=== PATIENT | female | born 1960 | race African-American/Black ===

== ENCOUNTER 2018-05-05 21:26 | Emergency (ER) | payer OTHER ==
[~2018-05-05] VITALS: Ht 162.6 cm; Wt 97.5 kg
[~2018-05-05 21:26] MED LIST: KEFLEX500 MG PO
[2018-05-05] MEDS ORDERED: OMEGA-31000 M1 PO (21:37)
[2018-05-05] MEDS ORDERED: VITAMIN D1000 UNI1 PO (21:37)
[2018-05-05 22:59] VITALS: BP 151/81
--- NOTE | 2018-05-06 08:06 | EKG ---
[address] [address] ELECTROCARDIOGRAM REPORT Name: SVETAAIDEN [id number] Admission: 05/05/18 Attend Phys: Discharge: 05/05/18 Date of : 60 Report #: [id number] THIS REPORT FOR: //name// [facility] ED Test Date: 2018-05-05 Test Time: 22:26:52 Pat Name: AIDEN BANGURA Department: Room: Gender: F Heat Sealing Machine Operator: FATOU : 1960 Requested By: Rocio Conklin Order Number: [id number] MD: Jorje Dao Measurements Intervals Anna Rate: 57 P: 46 DC: 180 QRS: -1 QRSD: 96 T: 7 QT: 447 QTc: 436 Interpretive Statements Sinus rhythm Borderline T wave abnormalities Baseline wander in lead(s) II,III,aVF Compared to ECG 07/04/2015 11:54:24 T-wave abnormality now present Sinus bradycardia no longer present Electronically Signed On 05-06-2018 8:06:09 [employer] by Jorje Dao [email or web address] <ELECTRONICALLY SIGNED> By: Jorje Dao MD 05/06/18805 25 25 Jorje Dao MD /EPI
== END 2018-05-05 23:00 | disposition home or self-care (01) ==
LOC: ER 21:26
DX: R58 Hemorrhage, not elsewhere classified (principal); M54.12 Radiculopathy, cervical region

== ENCOUNTER → 2021-04-23 | Emergency (ER) | payer OTHER ==
[~2021-04-23] VITALS: Ht 162.6 cm; Wt 99.8 kg
[~2021-04-23] MED LIST changes: +AMLODIPINE BESY10 MG PO; +OMEGA-31000 M1 PO; +PREDNISONE 10 M10 MG PO; +VITAMIN D1000 UNI1 PO
[2021-04-23 17:30] VITALS: BP 161/98
[2021-04-23 20:46] LABS: URINE BILIRUBIN NEGATIVE (Negative); URINE BLOOD 2+ (Negative); URINE CLARITY CLEAR; URINE COLOR YELLOW; URINE GLUCOSE-RANDOM* NEGATIVE (Negative); URINE KETONES NEGATIVE (Negative); URINE LEUKOCYTES-REFLEX NEGATIVE (Negative); URINE NITRITE-REFLEX NEGATIVE (Negative); URINE PROTEIN (DIPSTICK) 1+ (Negative); URINE SPECIFIC GRAVITY <= 1.005 (1.005-1.035); URINE UROBILINOGEN 0.2 E.U./dl (0.2-1.0)
[2021-04-23 20:56] LABS: BACTERIA-REFLEX 1-9 Few /HPF (None Seen); CASTS None Seen /LPF (None Seen); CRYSTALS None Seen /LPF (None Seen); SQUAMOUS 0-3 Few /LPF (0-3); URINE RBC 1-2 Rare /HPF (NONE SEEN); URINE WBC-REFLEX 0-5 Rare /HPF (0-5)
== END ==
LOC: ER 17:06
PROVIDERS: Emergency Medicine
DX: R11.2 Nausea with vomiting, unspecified (principal); R19.7 Diarrhea, unspecified; R50.9 Fever, unspecified; Z53.21 Procedure and treatment not carried out due to patient leaving prior to being seen by health care provider

== ENCOUNTER 2021-04-28 07:46 | Inpatient (IN) | payer OTHER ==
[~2021-04-28] VITALS: Ht 172.7 cm; Wt 93.9 kg
--- NOTE | ~2021-04-28 | EMS ---
[place] [id number] EMS Patient Care Report Name: AIDEN BANGURA Room #: 170-4 ADM IN M.R.#: [id number] Admission: 04/28/21 Attend Phys: Kevin Clifford MD Discharge: Date of : 60 Report #: [id number] THIS REPORT FOR: //name// Report Transmitted: 04/29/2021 10:58 EMS Care Summary [place], [place]/[facility] Incident [id number] @ 04/28/2021 07:[address] [facility] [address] [place] [address] Patient AIDEN BANGURA Female, 61 Years [address] [facility] [address] [place] [address] Patient History None Reported, Patient Allergies No known allergies, Patient Medications None Reported, Chief Complaint WEAKNESS Disposition Transported No Lights/[place] Dispatch Reason Heart Problems/AICD Transported To [facility] Narrative MEDIC 41 DISPATCHED FOR HEART PROBLEMS. UPON ARRIVAL ON SCENE WE WERE MET BY THE PATIENTS WHO LED US TO THE PATIENT. THE PATIENT WAS FOUND SEATED ON A COUCH APPEARING IN NO DISTRESS. THE PATIENT DID GIVE OFF THE APPEARANCE THAT SHE WAS TIRED. THE PATIENT CONSENTED TO ALL VITALS AND [place] [address] EMS Patient Care Report Name: AIDEN BANGURA Room #: 170-4 ADM IN Elizabeth#: [id number] Admission: 04/28/21 Attend Phys: Kevin Clifford MD Discharge: Date of : 60 Report #: [id number] STATED THAT SHE FELT LIKE HER HEART OF [place]. THE ALSO REPORTED THAT SHE HAD BEEN NOT FEELING WELL FOR THE PAST WEEK AND HAS HAD DIARRHEA. THE PATIENT STATED SHE WAS NOT VACCINATED FOR COVID AND HAD NOT BEEN ABLE TO GET A COVID TEST UP TO THIS POINT. WITH ASISSTANCE THE PATIENT WAS ABLE TO WALK OUT TO THE STRETCHER AND SIT ON THE STRETCHER WITHOUT INCIDENT. THE PATIENT HAD DENIED ANY TROUBLE BREATHING BUT ONCE IN THE AMBULANCE THE PATIENT WAS PLACED ON 3L O2 DUE TO A LOW O2 SAT. THE PATIENT STATED THERE WAS NO CHANGE IN HOW SHE FELT AFTER O2 WAS PLACED. NO CHANGES IN PATIENT CONDITION WERE SEEN DURING TRANSPORT. UPON ARRIVAL TO THE HOSPITAL THE PATIENT WAS MOVED TO THE ED WITHOUT INCIDENT AND CARE WAS TRANSFERED TO THE ED NURSE. Initial Vitals @07:22P: 101,BP: 166/88,CO: 3,SpO2: 91, @07:30P: 112,R: 18,BP: 172/124,Pain: 0/10,GCS: 15,SpO2: 84,Revised Trauma: 12, @07:35P: 92,R: 16,BP: 153/70,Pain: 0/10,GCS: 15,Temp: 100.6F,CO: 5,SpO2: 92,Revised Trauma: 12, @07:21P: 105,R: 18,BP: 170/103,Pain: 0/10,GCS: 15,SpO2: 90,Revised Trauma: 12, Assessments @07:21MENTAL:Time Oriented,Event Oriented,Place Oriented,Person Oriented,SKIN:HEENT:Eyes: Left Pupil: 4-mm,Eyes: Right Pupil: 4-mm,Head/Face: No Abnormalities,LUNG SOUNDS:General: Diarrhea,ABDOMEN:General: Diarrhea,PELVIS//GI:EXTREMITIES:Capillary Refill: Left Lower: < 2 Sec,Capillary Refill: Left Upper: < 2 Sec,Capillary Refill: Right Lower: < 2 Sec,Capillary Refill: Right Upper: < 2 Sec,Left Arm: No Abnormalities,Right Arm: No Abnormalities,Left Leg: No Abnormalities,Right Leg: No Abnormalities,PULSE:Radial: 2+ Normal,NEURO:No Abnormalities,@07:40MENTAL:Place Oriented,Time Oriented,Person Oriented,Event Oriented,SKIN:HEENT:Head/Face: No Abnormalities,Neck/Airway: No Abnormalities,LUNG SOUNDS:General: Diarrhea,ABDOMEN:General: Diarrhea,PELVIS//GI:EXTREMITIES:Capillary Refill: Left Upper: < 2 Sec,Capillary Refill: Right Upper: < 2 Sec,Left Arm: No Abnormalities,Right Arm: No Abnormalities,Left Leg: No Abnormalities,Right Leg: No Abnormalities,PULSE:Radial: 2+ Normal,NEURO: Impression Generalized Weakness Procedures @07:22 ALS Assessment Response: UnchangedSucceeded @07:22 3-Lead ECG Response: UnchangedSucceeded @07:27 Stretcher Response: Unchanged @07:31 Oxygen FlowRate: 2 Device: Nasal Cannula (NC) Response: ImprovedSucceeded Timeline [address] [address] EMS Patient Care Report Name: AIDEN BANGURA Room #: 170-4 ADM IN M.R.#: [id number] Admission: 04/28/21 Attend Phys: Kevin Clifford MD Discharge: Date of : 60 Report #: [id number] 07:11,Call Received 07:11,Dispatch Notified 07:12,Dispatched 07:13,En Route 07:19,On Scene 07:21,At Patient 07:21,BP: 170/103 M,PULSE: 105,RR: 18 R,SPO2: 90 Ox,ETCO2: ,BG: ,PAIN: 0,GCS: 15, 07:22,ALS Assessment,Response: UnchangedSucceeded, 07:22,3-Lead ECG,Response: UnchangedSucceeded, 07:22,BP: 166/88 M,PULSE: 101,RR: R,SPO2: 91 Ox,ETCO2: ,BG: ,PAIN: ,GCS: , 07:27,Stretcher,Response: Unchanged 07:30,BP: 172/124 M,PULSE: 112,RR: 18 R,SPO2: 84 Ox,ETCO2: ,BG: ,PAIN: 0,GCS: 15, 07:30,Depart Scene 07:31,Oxygen FlowRate: 2 Device: Nasal Cannula (NC) Response: ImprovedSucceeded, 07:35,BP: 153/70 M,PULSE: 92,RR: 16 R,SPO2: 92 Ox,ETCO2: ,BG: ,PAIN: 0,GCS: 15, 07:42,At Destination 07:50,Call Closed Disclaimer v1.1 Copyright 2021 [employer] This EMS Care Summary contains data elements from the applicable legal record (which may be displayed differently). It is designed to provide pertinent information for the following purposes: continuity of care, clinical quality, and state data reporting. The complete legal record is available to ED staff and administrators of the receiving hospital in [employer]'s Patient Tracker. All data is provided "as is."
--- NOTE | ~2021-04-28 | EMS ---
[place] [address] EMS Patient Care Report Name: AIDEN BANGURA Room #: REG Elizabeth#: [id number] Admission: 04/28/21 Attend Phys: Discharge: Date of : 60 Report #: [id number] THIS REPORT FOR: //name// Report Transmitted: 04/28/2021 07:53 EMS Care Summary [place], [place]/[facility] Incident [id number] @ 04/28/2021 07:12 Incident Location [facility] [place] [facility] [address] [place] [address] Patient AIDEN BANGURA Female, 61 Years 1960 Patient Address [address] [place] [address] Patient History None Reported, Patient Allergies No known allergies, Patient Medications None Reported, Chief Complaint WEAKNESS Disposition Transported No Lights/[place] Dispatch Reason Heart Problems/AICD Transported To [facility] Narrative MEDIC 41 DISPATCHED FOR HEART PROBLEMS. UPON ARRIVAL ON SCENE WE WERE MET BY THE PATIENTS WHO LED US TO THE PATIENT. THE PATIENT WAS FOUND SEATED ON A COUCH APPEARING IN NO DISTRESS. THE PATIENT DID GIVE OFF THE APPEARANCE THAT SHE WAS TIRED. THE PATIENT CONSENTED TO ALL VITALS AND ASSESSMENT. THE PATIENT [address] [address] EMS Patient Care Report Name: AIDEN BANGURA Room #: YAMILA Johnson#: [id number] Admission: 04/28/21 Attend Phys: Discharge: Date of : 60 Report #: [id number] STATED THAT SHE FELT LIKE HER HEART OF [place]. THE ALSO REPORTED THAT SHE HAD BEEN NOT FEELING WELL FOR THE PAST WEEK AND HAS HAD DIARRHEA. THE PATIENT STATED SHE WAS NOT VACCINATED FOR COVID AND HAD NOT BEEN ABLE TO GET A COVID TEST UP TO THIS POINT. WITH ASISSTANCE THE PATIENT WAS ABLE TO WALK OUT TO THE STRETCHER AND SIT ON THE STRETCHER WITHOUT INCIDENT. THE PATIENT HAD DENIED ANY TROUBLE BREATHING BUT ONCE IN THE AMBULANCE THE PATIENT WAS PLACED ON 3L O2 DUE TO A LOW O2 SAT. THE PATIENT STATED THERE WAS NO CHANGE IN HOW SHE FELT AFTER O2 WAS PLACED. NO CHANGES IN PATIENT CONDITION WERE SEEN DURING TRANSPORT. UPON ARRIVAL TO THE HOSPITAL THE PATIENT WAS MOVED TO THE ED WITHOUT INCIDENT AND CARE WAS TRANSFERED TO THE ED NURSE. Initial Vitals @07:22P: 101,BP: 166/88,CO: 3,SpO2: 91, @07:30P: 112,R: 18,BP: 172/124,Pain: 0/10,GCS: 15,SpO2: 84,Revised Trauma: 12, @07:35P: 92,R: 16,BP: 153/70,Pain: 0/10,GCS: 15,Temp: 100.6F,CO: 5,SpO2: 92,Revised Trauma: 12, @07:21P: 105,R: 18,BP: 170/103,Pain: 0/10,GCS: 15,SpO2: 90,Revised Trauma: 12, Assessments @07:21MENTAL:Person Oriented,Place Oriented,Event Oriented,Time Oriented,SKIN:HEENT:Eyes: Right Pupil: 4-mm,Eyes: Left Pupil: 4-mm,Head/Face: No Abnormalities,LUNG SOUNDS:General: Diarrhea,ABDOMEN:General: Diarrhea,PELVIS//GI:EXTREMITIES:Capillary Refill: Right Upper: < 2 Sec,Capillary Refill: Right Lower: < 2 Sec,Capillary Refill: Left Upper: < 2 Sec,Capillary Refill: Left Lower: < 2 Sec,Left Arm: No Abnormalities,Right Arm: No Abnormalities,Left Leg: No Abnormalities,Right Leg: No Abnormalities,PULSE:Radial: 2+ Normal,NEURO:No Abnormalities,@07:40MENTAL:Event Oriented,Person Oriented,Time Oriented,Place Oriented,SKIN:HEENT:Head/Face: No Abnormalities,Neck/Airway: No Abnormalities,LUNG SOUNDS:General: Diarrhea,ABDOMEN:General: Diarrhea,PELVIS//GI:EXTREMITIES:Capillary Refill: Right Upper: < 2 Sec,Capillary Refill: Left Upper: < 2 Sec,Left Arm: No Abnormalities,Right Arm: No Abnormalities,Left Leg: No Abnormalities,Right Leg: No Abnormalities,PULSE:Radial: 2+ Normal,NEURO: Impression Generalized Weakness Procedures @07:22 ALS Assessment Response: UnchangedSucceeded @07:22 3-Lead ECG Response: UnchangedSucceeded @07:27 Stretcher Response: Unchanged @07:31 Oxygen FlowRate: 2 Device: Nasal Cannula (NC) Response: ImprovedSucceeded Timeline [address] [address] EMS Patient Care Report Name: AIDEN BANGURA Room #: YAMILA Johnson#: [id number] Admission: 04/28/21 Attend Phys: Discharge: Date of : 60 Report #: [id number] 07:11,Call Received 07:11,Dispatch Notified 07:12,Dispatched 07:13,En Route 07:19,On Scene 07:21,At Patient 07:21,BP: 170/103 M,PULSE: 105,RR: 18 R,SPO2: 90 Ox,ETCO2: ,BG: ,PAIN: 0,GCS: 15, 07:22,ALS Assessment,Response: UnchangedSucceeded, 07:22,3-Lead ECG,Response: UnchangedSucceeded, 07:22,BP: 166/88 M,PULSE: 101,RR: R,SPO2: 91 Ox,ETCO2: ,BG: ,PAIN: ,GCS: , 07:27,Stretcher,Response: Unchanged 07:30,BP: 172/124 M,PULSE: 112,RR: 18 R,SPO2: 84 Ox,ETCO2: ,BG: ,PAIN: 0,GCS: 15, 07:30,Depart Scene 07:31,Oxygen FlowRate: 2 Device: Nasal Cannula (NC) Response: ImprovedSucceeded, 07:35,BP: 153/70 M,PULSE: 92,RR: 16 R,SPO2: 92 Ox,ETCO2: ,BG: ,PAIN: 0,GCS: 15, 07:42,At Destination 07:50,Call Closed Disclaimer v1.1 Copyright 2021 [employer] This EMS Care Summary contains data elements from the applicable legal record (which may be displayed differently). It is designed to provide pertinent information for the following purposes: continuity of care, clinical quality, and state data reporting. The complete legal record is available to ED staff and administrators of the receiving hospital in [employer]'s Patient Tracker. All data is provided "as is."
[~2021-04-28 07:46] MED LIST changes: -AMLODIPINE BESY10 MG PO; -PREDNISONE 10 M10 MG PO
[2021-04-28 07:58] VITALS: BP 160/84
--- NOTE | 2021-04-28 08:10 | NUR ---
PATIENT'S DAUGHTER-IVETTE MOODY-[phone]
[2021-04-28 08:34] LABS: ABSOLUTE NEUTROPHILS 4.6 thou/uL (1.4-8.2); BASOPHILS 0.4 % (0.0-2.0); HEMATOCRIT 40.3 % (37.0-47.0); HEMOGLOBIN 12.9 gm/dL (12.0-15.0); LYMPHOCYTES 9.2 % (24.0-44.0); MCH 25.7 pg (26.0-34.0); MCV 80.3 fL (80.0-100.0); PLATELET COUNT 239 thou/uL (150-400); POLYS 82.4 % (36.0-66.0); RBC 5.02 mil/uL (4.20-5.00); RDW 14.7 % (10.5-14.5); WBC 5.6 thou/uL (4.0-11.0)
[2021-04-28 08:41] LABS: CALCIUM 8.4 mg/dL (8.5-10.1); POTASSIUM 3.4 mmol/L (3.5-5.1)
[2021-04-28 08:51] LABS: TOTAL BILIRUBIN 0.4 mg/dL (0.2-1.0)
[2021-04-28 09:35] LABS: URINE BILIRUBIN NEGATIVE (Negative); URINE BLOOD 1+ (Negative); URINE CLARITY CLEAR; URINE COLOR YELLOW; URINE GLUCOSE-RANDOM* NEGATIVE (Negative); URINE KETONES TRACE (Negative); URINE LEUKOCYTES-REFLEX NEGATIVE (Negative); URINE NITRITE-REFLEX NEGATIVE (Negative); URINE PROTEIN (DIPSTICK) 2+ (Negative); URINE UROBILINOGEN 0.2 E.U./dl (0.2-1.0)
[2021-04-28 09:44] LABS: CASTS None Seen /LPF (None Seen); SQUAMOUS 4-10 Moderate /LPF (0-3)
[2021-04-28 09:45] LABS: BACTERIA-REFLEX 1-9 Few /HPF (None Seen); CRYSTALS None Seen /LPF (None Seen); URINE RBC 1-2 Rare /HPF (NONE SEEN); URINE WBC-REFLEX 0-5 Rare /HPF (0-5)
--- NOTE | 2021-04-28 09:50 | EKG ---
[place] [address] [address] [facility] [place] [address] ELECTROCARDIOGRAM REPORT Name: AIDEN BANGURA Room #: REG Elizabeth#: [id number] Admission: 04/28/21 Attend Phys: Discharge: Date of : 60 Report #: [id number] [facility] ED Test Date: 2021-04-28 Test Time: 07:51:39 Pat Name: AIDEN BANGURA Department: Room: Gender: F Cmv Driver: AMY : 1960 Requested By: Booker Leblanc Order Number: [id number] MD: Sourav Terrazas Measurements Intervals Meyers Chuck Rate: 87 P: 35 AL: 151 QRS: -36 QRSD: 89 T: 25 QT: 369 QTc: 444 Interpretive Statements Sinus rhythm Poor R wave progression Leftward axis Compared to ECG 05/05/2018 22:26:52 Meyers Chuck has shifted leftward T-wave abnormality no longer present Electronically Signed On 04-28-2021 9:50:40 JOB TRAINING SPECIALIST by Sourav Terrazas [email or web address] <ELECTRONICALLY SIGNED> By: Sourav Terrazas MD, [facility] 04/28/21 0950 [id number] Sourav Terrazas MD, FACC /EPI
--- NOTE | 2021-04-28 12:43 | NUR ---
ATTEMPTED TO CALL INFECTIOUS DISEASE CONSULT @5275
[2021-04-28 13:04] LABS: FOLIC ACID 17.4 ng/mL (8.6-58.9)
[2021-04-29 02:00] VITALS: BP 153/69
[2021-04-29 05:46] LABS: HEMATOCRIT 38.8 % (37.0-47.0); HEMOGLOBIN 12.4 gm/dL (12.0-15.0); MCH 25.8 pg (26.0-34.0); MCV 80.5 fL (80.0-100.0); RBC 4.81 mil/uL (4.20-5.00); RDW 14.9 % (10.5-14.5); WBC 4.3 thou/uL (4.0-11.0)
[2021-04-29 05:59] LABS: ALBUMIN 2.5 g/dL (3.4-5.0); ANION GAP 6 mmol/L (7-16); BUN 10 mg/dL (7-18); CALCIUM 8.4 mg/dL (8.5-10.1); CHLORIDE 98 mmol/L (98-107); CO2 30 mmol/L (21-32); CREATININE 0.9 mg/dL (0.6-1.0); DIRECT BILIRUBIN < 0.1 mg/dL (<0.1-0.2); GLUCOSE 140 mg/dL (74-106); PHOSPHORUS 3.3 mg/dL (2.6-4.7); POTASSIUM 3.7 mmol/L (3.5-5.1); SGOT 53 U/L (15-37); SGPT 44 U/L (14-59); SODIUM 134 mmol/L (136-145); TOTAL BILIRUBIN 0.3 mg/dL (0.2-1.0); TOTAL PROTEIN 7.2 g/dL (6.4-8.2)
[2021-04-29 08:40] VITALS: BP 153/82
--- NOTE | 2021-04-29 09:45 | NUR ---
PT REQUIRED MULTIPLE TITRATIONS OF O2, PT DESAT FREQUENTLY. RT AT BEDSIDE, PLACED PT ON HIGHFLOW NASAL CANNULA
[2021-04-29 14:31] VITALS: BP 140/63
--- NOTE | 2021-04-29 15:06 | NUR ---
PT ORIENTED TO ROOM AND UNIT, BED LOW AND LOCKED, SIDE RIALS UPX3, CALL LIGHTIN REACH, TELE APPLIED. PT ON HIFLO OXYGEN. WILL CONTINUE TO ASSESS.
[2021-04-29 15:35] VITALS: BP 164/83
[2021-04-29 20:09] VITALS: BP 163/84
[2021-04-30 00:04] VITALS: BP 167/78
[2021-04-30 04:53] VITALS: BP 162/77
[2021-04-30 04:54] LABS: BASOPHILS 0.8 % (0.0-2.0); HEMATOCRIT 41.2 % (37.0-47.0); HEMOGLOBIN 13.1 gm/dL (12.0-15.0); LYMPHOCYTES 12.9 % (24.0-44.0); MCH 25.3 pg (26.0-34.0); MCHC 31.8 g/dL (28.0-37.0); MCV 79.7 fL (80.0-100.0); MONOCYTES 8.7 % (1.0-8.0); POLYS 77.6 % (36.0-66.0); RBC 5.17 mil/uL (4.20-5.00); RDW 14.6 % (10.5-14.5)
[2021-04-30 05:04] LABS: INR 1.2
[2021-04-30 05:17] LABS: PLATELET COUNT 373 thou/uL (150-400)
[2021-04-30 05:20] LABS: ALBUMIN 2.8 g/dL (3.4-5.0); ANION GAP 9 mmol/L (7-16); BUN 16 mg/dL (7-18); CALCIUM 8.7 mg/dL (8.5-10.1); CHLORIDE 98 mmol/L (98-107); CO2 30 mmol/L (21-32); DIRECT BILIRUBIN < 0.1 mg/dL (<0.1-0.2); GLUCOSE 151 mg/dL (74-106); PHOSPHORUS 3.7 mg/dL (2.5-4.9); POTASSIUM 3.4 mmol/L (3.5-5.1); SGOT 40 U/L (15-37); SGPT 49 U/L (30-65); SODIUM 137 mmol/L (136-145); TOTAL BILIRUBIN 0.3 mg/dL (0.2-1.0)
[2021-04-30 15:07] LABS: HIV ANTIBODY Non Reactive (Non Reactive)
[2021-04-30 15:52] VITALS: BP 155/95
--- NOTE | 2021-04-30 15:57 | NUR ---
INITIAL ASSESSMENT: Received consult. SW reviewed chart and spoke with nursing and attending physician. Pt was admitted from home due to COVID. Pt placed in Enhanced Isolation. Pt has not received a COVID vaccination. Pt is afebrile and requiring optiflow. Pt is on IV meds and Remdesivir. SW placed call to pt's room. No answer. Per chart, pt is alert/orientated. Pt lives at home. Therapy evals have not been ordered at this time. SW to follow up with pt to obtain info for assessment and discuss discharge plan.
--- NOTE | 2021-04-30 21:00 | HC ---
[facility] [place] [address] CONSULTATION Name: AIDEN BANGURA Room #: [address] [place] [address] IN M.R.#: [id number] Admission: 04/28/21 Attend Phys: Kevin Clifford MD Discharge: Date of : 60 Report #: [id number] THIS REPORT FOR: cc: FAM - Family physician unknown FAM - Family physician unknown Blayne Sena MD ~ DATE OF SERVICE: 04/29/2021 INFECTIOUS DISEASE CONSULTATION REASON FOR CONSULTATION: I was asked to evaluate concerning COVID-19 pneumonia. HISTORY OF PRESENT ILLNESS: The patient is a 61-year-old unvaccinated for COVID-19. She has had relatively acute onset of headache, hyperosmia, cough, congestion, shortness of breath along with GI upset and diarrhea. Onset was approximately 5 days ago. 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 Her last check was on 04/12/2021, reported negative. She is now COVID positive. She has had a low-grade fever and chills also. No history of pneumonia, tuberculosis, HIV, hepatitis, or asthma. She is a nonsmoker. REVIEW OF SYSTEMS: A 14-point review of system was negative other than what has been described above. ALLERGIES: None known. MEDICATIONS: As noted on her MAR, which were reviewed. PAST MEDICAL HISTORY: Tubal ligation. FAMILY HISTORY: No report of tuberculosis. SOCIAL HISTORY: Nonsmoker, no significant alcohol intake. Lives with her . PHYSICAL EXAMINATION: GENERAL: Afebrile and hemodynamically stable. She was alert and cooperative on high flow oxygen at 55%. She had minimally productive cough of white colored sputum without hemoptysis. She was obese. SKIN: Without rash. HEENT: No palpable adenopathy. Eyes without scleral icterus. Mouth without mucositis. NECK: Supple. LUNGS: Coarse breath sounds posteriorly without consolidation. HEART: Regular, without appreciable murmur, gallop or rub. ABDOMEN: Soft and nontender. No hepatosplenomegaly or mass. EXTREMITIES: Without clubbing, cyanosis or edema. [facility] [address] [place] [address] CONSULTATION Name: AIDEN BANGURA Room #: 362-P [facility] IN M.R.#: [id number] Admission: 04/28/21 Attend Phys: Kevin Clifford MD Discharge: Date of : 60 Report #: [id number] NEUROLOGIC: Cranial nerves intact and strength in the upper and lower extremities within normal limits. PSYCHIATRIC: Mood without anxiety. SPINE: Nontender. LABORATORY DATA: Reviewed. IMAGING: Chest x-ray reviewed. IMPRESSION: A 61-year-old unvaccinated patient with COVID-19 pneumonia and respiratory failure. Risk factors for further decline include her age and obesity. I am concerned that she is already on 55 liters of oxygen per nasal cannula. I feel her risk to progress to require intubation and mechanical ventilation is high. Recommended continuing combination therapy with antibiotics pending culture results in addition to remdesivir and corticosteroids. Due to her current high flow oxygen, I recommended Actemra and describes studies that have shown improvement in patients given the stroke. The patient refused and elected to stay on her current program. RECOMMENDATION: We will plan on continuing COVID Isolation Unit care for cardiopulmonary monitoring. She should show progression with transfer to the Intensive Care Unit. We will monitor daily laboratory studies. I have discussed the case with nursing in attendance. <ELECTRONICALLY SIGNED> By: Blayne Sena MD 04/30/212099 [id number] [id number] Blayne Sena MD /nt
[2021-04-30 21:23] VITALS: BP 141/94
[2021-05-01 03:46] VITALS: BP 153/87
[2021-05-01 05:11] LABS: ALBUMIN 2.8 g/dL (3.4-5.0); ANION GAP 7 mmol/L (7-16); BUN 19 mg/dL (7-18); CALCIUM 8.5 mg/dL (8.5-10.1); CHLORIDE 96 mmol/L (98-107); CO2 33 mmol/L (21-32); DIRECT BILIRUBIN < 0.1 mg/dL (<0.1-0.2); GLUCOSE 142 mg/dL (74-106); PHOSPHORUS 4.1 mg/dL (2.5-4.9); SGOT 45 U/L (15-37); SGPT 51 U/L (30-65); SODIUM 136 mmol/L (136-145); TOTAL BILIRUBIN 0.3 mg/dL (0.2-1.0); TOTAL PROTEIN 7.3 g/dL (6.4-8.2)
[2021-05-01 05:21] LABS: POTASSIUM 2.9 mmol/L (3.5-5.1)
--- NOTE | 2021-05-01 05:28 | NUR ---
PT ALERT AND ORIENTED X4. VSS. BP HAS BEEN MODERATELY ELEVATED. AFEBRILE THIS AM. BS DIMINISHED AND SOA NOTED WHILE GETTING TO AND FROM BSC. FIO2 DECREASED TO 65% PER RT. SATS 96-97%. INSTRUCTED PT ON NEED FOR SPUTUM SAMPLE. BED DOWN. CALL LIGHT IN REACH . WILL CONTINUE TO MONITOR PT FOR CHANGES.
[2021-05-01 07:50] VITALS: BP 159/83
[2021-05-01 15:32] VITALS: BP 155/83
[2021-05-01 20:20] VITALS: BP 155/78
[2021-05-02 03:50] VITALS: BP 157/88
--- NOTE | 2021-05-02 05:49 | NUR ---
PT PROGRESSING TOWARDS D/C GOALS. VSS AFEBRILE. SATS WNL ON CURRENT OPTIFLOW FIO2 70% AND LF 50%. NO C/O PAIN OR SOA TONIGHT. VOIDING LG AMTS CLEAR YELLOW URINE. PER BSC.
[2021-05-02 06:01] LABS: ALBUMIN 2.9 g/dL (3.4-5.0); CALCIUM 8.7 mg/dL (8.5-10.1); CREATININE 0.9 mg/dL (0.6-1.0); DIRECT BILIRUBIN 0.1 mg/dL (<0.1-0.2); PHOSPHORUS 3.7 mg/dL (2.5-4.9); POTASSIUM 3.3 mmol/L (3.5-5.1); TOTAL BILIRUBIN 0.4 mg/dL (0.2-1.0); TOTAL PROTEIN 7.7 g/dL (6.4-8.2)
[2021-05-02 07:31] VITALS: BP 156/93
--- NOTE | 2021-05-02 12:44 | NUR ---
TAVIA reviewed chart and spoke with nursing and attending physician. Pt remains in Enhanced Isolation due to COVID. Pt is afebrile and on optiflow. Pt is on IV abx and IV steroids. TAVIA placed call to pt's room. No answer. TAVIA left voice message on pt's cell phone: [phone]. Therapy evals to be ordered when pt is able to participate. TAVIA is following to assist as needed with discharge planning.
[2021-05-02 15:43] VITALS: BP 160/98
[2021-05-02 19:45] VITALS: BP 153/86
[2021-05-03 05:31] VITALS: BP 149/83
--- NOTE | 2021-05-03 05:42 | NUR ---
Patient not making progress towards outcome goals. Continues to require optiflow 50L/70% oxygen. To start on second round of Remdesivir. Denies pain. Vital signs and rhythm stable, Up to BSC without difficulty.
[2021-05-03 06:12] LABS: ABSOLUTE NEUTROPHILS 5.8 thou/uL (1.4-8.2); BASOPHILS 0.4 % (0.0-2.0); HEMATOCRIT 39.6 % (37.0-47.0); HEMOGLOBIN 13.1 gm/dL (12.0-15.0); LYMPHOCYTES 11.9 % (24.0-44.0); MCH 26.3 pg (26.0-34.0); MCHC 33.1 g/dL (28.0-37.0); MCV 79.4 fL (80.0-100.0); MONOCYTES 8.3 % (1.0-8.0); PLATELET COUNT 403 thou/uL (150-400); POLYS 79.4 % (36.0-66.0); RBC 4.99 mil/uL (4.20-5.00); RDW 14.2 % (10.5-14.5); WBC 7.3 thou/uL (4.0-11.0)
[2021-05-03 06:36] LABS: ALBUMIN 2.9 g/dL (3.4-5.0); ANION GAP 4 mmol/L (7-16); BUN 19 mg/dL (7-18); CALCIUM 8.7 mg/dL (8.5-10.1); CHLORIDE 89 mmol/L (98-107); CO2 36 mmol/L (21-32); DIRECT BILIRUBIN < 0.1 mg/dL (<0.1-0.2); GLUCOSE 135 mg/dL (74-106); PHOSPHORUS 4.1 mg/dL (2.5-4.9); SGOT 39 U/L (15-37); SGPT 51 U/L (30-65); SODIUM 129 mmol/L (136-145); TOTAL BILIRUBIN 0.4 mg/dL (0.2-1.0); TOTAL PROTEIN 7.5 g/dL (6.4-8.2)
[2021-05-03 06:39] LABS: POTASSIUM 2.9 mmol/L (3.5-5.1)
[2021-05-03 07:34] VITALS: BP 155/100
[2021-05-03 10:06] LABS: T-SPOT.TB Negative
--- NOTE | 2021-05-03 11:58 | NUR ---
SW reviewed chart and spoke with nursing and attending physician. Pt remains in Enhanced Isolation due to COVID. Pt is afebrile and requiring optiflow. Pt is on IV meds and started another course of Remdesivir. No weekend discharge planned. SW spoke with pt via phone. Introduced role of SW. Pt is alert/orientated x 4 and reports she lives at home with family. Prior to admission, pt was independent with ADLs. No use of DME or home O2. Pt's PCP was Dr. Jean-Claude Long, who recently retired. Pt is unsure which provider she has been assigned to. SW offered to call the physician office to find out. Pt agreeable. PT/OT evals to be ordered when pt is able to participate. TAVIA placed call to [facility] office. Pt has been assigned to Dr. Marylou Wood. Pt's first appt with Dr. Wood is at 0900. Plan is for pt to discharge home when medically stable. SW is following to assist as needed with discharge planning.
[2021-05-03 16:23] VITALS: BP 148/85
--- NOTE | 2021-05-03 17:26 | NUR ---
assumed care of pt at 0700. remains on optiflow 50L / 55%. no acute distress. second round of remdesivir started. vitals stable. no events on telemetry. wcm.
[2021-05-03 20:28] VITALS: BP 161/103
[2021-05-04 03:18] LABS: ABSOLUTE NEUTROPHILS 6.8 thou/uL (1.4-8.2); BASOPHILS 0.2 % (0.0-2.0); HEMATOCRIT 41.1 % (37.0-47.0); HEMOGLOBIN 13.3 gm/dL (12.0-15.0); LYMPHOCYTES 10.3 % (24.0-44.0); MCH 25.7 pg (26.0-34.0); MCHC 32.4 g/dL (28.0-37.0); MCV 79.4 fL (80.0-100.0); MONOCYTES 7.5 % (1.0-8.0); PLATELET COUNT 412 thou/uL (150-400); RBC 5.18 mil/uL (4.20-5.00); RDW 14.4 % (10.5-14.5); WBC 8.3 thou/uL (4.0-11.0)
[2021-05-04 05:23] VITALS: BP 153/81
--- NOTE | 2021-05-04 05:47 | NUR ---
PT MAKING PROGRESS TOWARDS GOALS. UPON INITIAL ASSESSEMENT PT WAS ON OPTIFLO AT 50L/55% FIO2. LATER IN EVENING PT WAS TRANSITIONED TO HIFLO O2 CANNULA AT 15L. NOTED SPOT CHECKS OF O2 SATS WERE HIGH 902, EVEN 99%. THIS AM, O2 DECREASED TO 10L PER NC. PT STATING THAT SHE FEELS SHE IS BREATHING BETTER THIS MORNING.
[2021-05-04 06:42] LABS: ALBUMIN 3.1 g/dL (3.4-5.0); CALCIUM 8.7 mg/dL (8.5-10.1); DIRECT BILIRUBIN 0.1 mg/dL (<0.1-0.2); POTASSIUM 3.6 mmol/L (3.5-5.1); TOTAL BILIRUBIN 0.5 mg/dL (0.2-1.0)
[2021-05-04 07:41] VITALS: BP 155/100
[2021-05-04 15:30] VITALS: BP 159/97
[2021-05-04 20:39] VITALS: BP 148/94
[2021-05-05 04:10] VITALS: BP 148/74
[2021-05-05 06:21] LABS: ABSOLUTE NEUTROPHILS 4.9 thou/uL (1.4-8.2); BASOPHILS 0.4 % (0.0-2.0); HEMATOCRIT 44.9 % (37.0-47.0); HEMOGLOBIN 14.4 gm/dL (12.0-15.0); MCH 25.6 pg (26.0-34.0); MCV 79.9 fL (80.0-100.0); MONOCYTES 8.7 % (1.0-8.0); PLATELET COUNT 399 thou/uL (150-400); POLYS 77.9 % (36.0-66.0); RBC 5.62 mil/uL (4.20-5.00); RDW 14.6 % (10.5-14.5); WBC 6.3 thou/uL (4.0-11.0)
[2021-05-05 06:57] LABS: ALBUMIN 3.1 g/dL (3.4-5.0); CALCIUM 8.9 mg/dL (8.5-10.1); DIRECT BILIRUBIN 0.1 mg/dL (<0.1-0.2); POTASSIUM 3.2 mmol/L (3.5-5.1); TOTAL BILIRUBIN 0.5 mg/dL (0.2-1.0); TOTAL PROTEIN 7.9 g/dL (6.4-8.2)
--- NOTE | 2021-05-05 06:57 | NUR ---
PT MAKING PROGRESS TOWARDS GOALS. RT TITRATED O2 DOWN TO 2L. NOTED AT REST O2 SAT 94-95%. WITH ACTIVITY SUCH UP TO BSC O2 SAT MID 80'S. PT DID STATE THAT SHE WAS PACING HER ACTIVITIES. O2 SAT RESUMED TO THE MID 90'S AFTER 3-4 MINUTES OF REST. PT DENIED ANY SOA WITH THAT ACTIVITY.
[2021-05-05 08:00] VITALS: BP 147/103
[2021-05-05 15:46] VITALS: BP 148/92
--- NOTE | 2021-05-05 17:34 | NUR ---
assumed care of pt at 0700. pt aox4. no distress. weaned to 2L NC. requiring 6L w/ activity per RT rec. steady gait. calls appropriately. no events on telemetry. wcm.
[2021-05-05 20:47] VITALS: BP 150/102
--- NOTE | 2021-05-05 22:51 | NUR ---
PT ALERT ANDORIENTED X4. VSS AFEBRILE. NO C/O PAIN. NO S/S DISTRESS ON 5LNC. SAT 100%. BED DOWN. CALL LIGHT IN REACH. PT POSSIBLY GOING HOME TOMORROW.
[2021-05-06 04:56] VITALS: BP 138/93
--- NOTE | 2021-05-06 06:08 | NUR ---
PT PROGRESSING TOWARDS D/C GOALS. VSS AFEBRILE . UNLABORED ON 5LNC. NO C/O PAIN.
[2021-05-06 06:56] LABS: ABSOLUTE NEUTROPHILS 6.6 thou/uL (1.4-8.2); BASOPHILS 0.2 % (0.0-2.0); HEMATOCRIT 46.2 % (37.0-47.0); HEMOGLOBIN 14.9 gm/dL (12.0-15.0); MCH 25.7 pg (26.0-34.0); MCHC 32.1 g/dL (28.0-37.0); MONOCYTES 8.2 % (1.0-8.0); PLATELET COUNT 401 thou/uL (150-400); POLYS 81.6 % (36.0-66.0); RBC 5.78 mil/uL (4.20-5.00); RDW 14.5 % (10.5-14.5); WBC 8.1 thou/uL (4.0-11.0)
[2021-05-06 07:17] LABS: ALBUMIN 3.4 g/dL (3.4-5.0); CALCIUM 9.1 mg/dL (8.5-10.1); CREATININE 1.2 mg/dL (0.6-1.0); DIRECT BILIRUBIN 0.1 mg/dL (<0.1-0.2); POTASSIUM 3.3 mmol/L (3.5-5.1); TOTAL BILIRUBIN 0.6 mg/dL (0.2-1.0); TOTAL PROTEIN 8.4 g/dL (6.4-8.2)
[2021-05-06 07:20] VITALS: BP 156/101
--- NOTE | 2021-05-06 14:13 | NUR ---
TAVIA reviewed chart and spoke with nursing and attending physician. Pt remains in Enhanced Isolation due to COVID. Pt is afebrile and on 2-4L of O2. Pt had rest/exercise oximetry completed yesterday and needed 6L of O2 with activity to get to 89%. Pt is progressing towards goals for discharge. Discharge home is anticipated for tomorrow. Will need rest/exercise oximetry completed tomorrow. TAVIA placed call to pt's room to discuss discharge plan. No answer. SW asked attending physician if PT/OT evals need to be ordered prior to discharge. SW is following to assist as needed with discharge planning.
--- NOTE | 2021-05-06 14:54 | NUR ---
Nutrition: pt admitted with COVID and seen due to LOS. PMH reviewed. Pt eating 50-90% of meals on regular diet. Attempted to leave AMA today per nsg. Some confusion present. On vitamin pack, steroid. BMI 32, obesity class 1. Current weight showing a possible 10# decline from initial weight. Follow trends. place as low nutrition risk.
[2021-05-06 15:47] VITALS: BP 163/76
[2021-05-06 19:41] VITALS: BP 156/92
[2021-05-07 04:53] VITALS: BP 161/94
--- NOTE | 2021-05-07 05:51 | NUR ---
Patient making progress towards oucome goals. Oxygenation optimal on 4L/NC. Patient anxious to go home, willing to discharge with oxygen. Up adlib without difficulty.
[2021-05-07 07:40] VITALS: BP 143/92
[2021-05-07 08:16] LABS: ALBUMIN 3.1 g/dL (3.4-5.0); PHOSPHORUS 3.9 mg/dL (2.5-4.9); POTASSIUM 3.3 mmol/L (3.5-5.1)
[2021-05-07 12:34] VITALS: BP 143/92
--- NOTE | 2021-05-07 12:37 | NUR ---
DISCHARGE NOTE: TAVIA reviewed chart and spoke with nursing and attending physician. Pt remains in Enhanced Isolation due to COVID. Pt is afebrile and on 4L of O2. Pt is on IV steroids. TAVIA spoke with pt via phone, who states she was told she is going to discharge home today. SW explained need for home O2 and offered to arrange HH services. Pt is agreeable with HH referral. SW confirmed pt's home address and phone number. Options for HH and Home O2 companies provided. No preference voiced. TAVIA faxed HH referral to [facility] and notified liaison. TAVIA faxed home O2 referral to [facility]. Notified [facility] liaison. Rest/exercise oximetry to be completed today to determine home O2 needs. SW to fax testing and script for O2 to [facility] when available. Final d/c ppwk to be faxed to . Pt states she will have transportation home when discharged. Contact info for and [facility] placed in pt's discharge summary. TAVIA is following to finalize discharge plan.
[2021-05-07] MEDS ORDERED: AMLODIPINE BESY10 MG PO (14:22)
[2021-05-07] MEDS ORDERED: PREDNISONE 10 M10 MG PO (14:22)
[2021-05-07 15:18] VITALS: BP 143/92
== END 2021-05-07 17:15 | disposition home health service (06) | DRG 177 ==
LOC: ER 07:46 → 3W 09:50 → EROBS 09:50 → 3W 04-29 15:45
PROVIDERS: Emergency Medicine; Hospitalist; Specialist; ADMIT Hospitalist; ATTEND Hospitalist
PROC: XW033E5 Introduction of Remdesivir Anti-infective into Peripheral Vein, Percutaneous Approach, New Technology Group 5 (ICD-10-PCS; principal; 2021-04-28)
PROC: 5A0935A Assistance with Respiratory Ventilation, Less than 24 Consecutive Hours, High Flow/Velocity Cannula (ICD-10-PCS; 2021-04-29)
PROC: 5A0935A Assistance with Respiratory Ventilation, Less than 24 Consecutive Hours, High Flow/Velocity Cannula (ICD-10-PCS; 2021-04-30)
PROC: 5A0945A Assistance with Respiratory Ventilation, 24-96 Consecutive Hours, High Flow/Velocity Cannula (ICD-10-PCS; 2021-05-02)
DX: U07.1 COVID-19 (principal); J12.82 Pneumonia due to coronavirus disease 2019; J96.01 Acute respiratory failure with hypoxia; E87.1 Hypo-osmolality and hyponatremia; E66.01 Morbid (severe) obesity due to excess calories; E87.6 Hypokalemia; I10 Essential (primary) hypertension; Z79.899 Other long term (current) drug therapy; Z68.31 Body mass index [BMI] 31.0-31.9, adult
CPT/HCPCS: 10879